=== PATIENT | female | born 1990 | race Caucasian/White ===

== ENCOUNTER → 2017-09-15 | Outpatient (CLI) | payer OTHER ==
[~2017-09-15] MED LIST: CLIN300C2 PO; SPR28 PO
[2017-09-15 13:49] LABS: INR 0.9 (0.9-1.1); PTT PATIENT 26.4 SECONDS (21.0-31.0)
[2017-09-15 14:00] LABS: POTASSIUM 3.5 mmol/L (3.5-5.1)
[2017-09-15 14:20] LABS: BASO % 0.4 %; BASO ABS # 0.03 K/uL (0-0.2); EOS % 0.3 %; EOS ABS # 0.02 K/uL (0-0.5); HEMATOCRIT 42.1 % (37-47); IG# 0.01 K/uL (0.00-0.02); LYMPH ABS # 2.17 K/uL (1.2-3.4); MEAN CELL VOLUME 89.6 fL (80-100); MEAN CORPUSCULAR HEMOGLOBIN 29.8 pg (25-34); MEAN CORPUSCULAR HGB CONC 33.3 g/dl (32-36); MEAN PLATELET VOLUME 9.9 fL (7.4-10.4); MONO % 6.2 %; MONO ABS # 0.43 K/uL (0.11-0.59); NEUT ABS # 4.33 K/uL (1.4-6.5); PLATELET COUNT 347 K/uL (130-400); RED CELL DISTRIBUTION WIDTH CV 13.6 % (11.5-14.5); RED CELL DISTRIBUTION WIDTH SD 45.1 fL (36.4-46.3); WHITE BLOOD COUNT 6.99 K/uL (4.8-10.8)
== END | disposition home or self-care (01) ==
LOC: C.LABBC 11:01
DX: Z01.818 Encounter for other preprocedural examination (principal)

== ENCOUNTER → 2017-10-08 | Day surgery (SDC) | payer OTHER ==
[2017-07-21 07:34] VITALS: BMI 19.0
[2017-09-15 13:33] VITALS: Ht 165.1 cm; Wt 52.3 kg
[~2017-10-08] VITALS: Ht 165.1 cm; Wt 52.3 kg
[~2017-10-08] MED LIST changes: +ACETAMINOPHEN/HYDROCODONE ELIX 15 ML/CUP UDP ONE; +ACETAMINOPHEN/HYDROCODONE ELIX 15 ML/CUP UDP PO PRN; +ATROPINE SULFATE 0.1 MG/ML 5ML SYR IV PRN; +BACITRACIN/POLYMYXIN B OINT 15 GM TUBE EXT ONE; -CLIN300C2 PO; +DEXAMETHASONE SOD INJ 4 MG/ML VIAL IV PRN; +DEXAMETHASONE SOD INJ 4 MG/ML VIAL ONE; +EpHEDrine SULFATE INJ 50 MG/ML AMP IV PRN; +FENTANYL CITRATE INJ 50 MCG/1 ML 2 ML VIAL IV PRN; +FENTANYL CITRATE INJ 50 MCG/1 ML 2 ML VIAL ONE; +KETOROLAC TROMETHAMINE 30 MG/ML VIAL IV. PRN; +LABETALOL HCL IV 5 MG/ML 20ML IV PRN; +LACTATED RINGER'S 1000ML 1,000 ML IV SCH; +LIDOCAINE 2% JELLY 5 ML TUBE EXT ONE; +LIDOCAINE HCL 2% 2 ML VIAL (20MG/ML) ONE; +METOCLOPRAMIDE HCL INJ 5 MG/ML 2 ML VIAL IV PRN; +MIDAZOLAM HCL 1 MG/ML 2ML VIAL ONE; +MoRPHine SULFATE 10 MG/ML CARP/VIAL IV PRN; +ONDANSETRON INJ 2 MG/ML 2 ML VIAL IV PRN; +ONDANSETRON INJ 2 MG/ML 2 ML VIAL ONE; +PHENYLEPHRINE 100MCG/ML 5ML SYR IV PRN; +PROPOFOL IV EMULSION 10 MG/ML 20 ML VIAL IV ONE
--- NOTE | 2017-10-08 11:28 | History and Physical: Surg Cnt ---
History & Physical Date Oct 08, 2017. Chief Complaint RECURRENT ACUTE AND CHRONIC TONSILLITIS History of Present Illness The patient is a 26 year old female with complaints of RECURRENT ACUTE AND CHRONIC TONSILLITIS Past Medical/Surgical History PMH: NONE PSH: S/P ACL REPAIR, S/P HERNIA REPAIR, S/P BLADDER SURGERY, S/P WISDOM TEETH EXTRACTION Additional History Hepatic Disease: No Endocrine Disorder: No Kidney Disease: No Hypertension: No Heart Disease: No Bleeding Tendencies: No Infectious Diseases: No Allergies Coded Allergies: Amoxicillin (Verified Allergy, Unknown, RASH, 10/08/17) Clavulanic Acid (Verified Allergy, Unknown, RASH, 10/08/17) Clindamycin (Verified Allergy, Unknown, RASH, 10/08/17) Home Medications Scheduled Ethinyl Estrad/Norgestimate (Sprintec 28), 1 TAB PO HS Physical Examination Skin: warm/dry, no rash Eyes: normal inspection, EOMI, sclerae normal ENT: + pertinent finding (2-3+ CRYPTIC TONSILS) Head: normocephalic, atraumatic Neck: supple, no adenopathy, trachea midline Respiratory/Chest: lungs clear, normal breath sounds, no respiratory distress Cardiovascular: regular rate, rhythm, no edema, no murmur Neurologic/Psych: no motor/sensory deficits, alert, normal reflexes, oriented x 3 Diagnosis RECURRENT ACUTE AND CHRONIC TONSILLITIS Plan of Treatment TONSILLECTOMY, POSSIBLE ADENOIDECTOMY
--- NOTE | 2017-10-08 12:27 | [facility] Operative Report ---
Operative Report Operative Date Oct 08, 2017. Pre-Operative Diagnosis Recurrent Acute and Chronic Tonsillitis Post-Operative Diagnosis Same Procedure(s) Performed Tonsillectomy Surgeon Dr. King [facility] Consultant Surgeon(s) None Estimated Blood Loss 5ML Findings 2-3+ CRYPTIC TONSILS BILATERALLY Specimens A. Right Tonsil B. Left Tonsil I attest to the content of the Intraoperative Record and any orders documented therein. Any exceptions are noted below.
--- NOTE | 2017-10-08 12:30 | Discharge Instructions ---
Discharge Instructions Date of Service Oct 08, 2017. Admission Reason for Admission: Recurrent Acute Tonsillitis,Hypertrophy Discharge Discharge Diagnosis / Problem: SAME Discharge Goals Goal(s): Therapeutic intervention Activity Recommendations Activity Limitations: as noted below LIGHT ACTIVITY FOR 2 WEEKS . Current Hospital Diet Patient's current hospital diet: Full Liquid Diet Discharge Diet Recommended Diet: Full Liquid Diet Diet Texture: Mechanical Soft (ground) Procedures Procedures Performed: Tonsillectomy Pending Studies Studies pending at discharge: no Medical Emergencies . Who to Call and When: Medical Emergencies: If at any time you feel your situation is an emergency, please call 911 immediately. . Non-Emergent Contact Non-Emergency issues call your: Surgeon . . "Provider Documentation" section prepared by River King. . VTE Core Measure Inpt VTE Proph given/why not?: SCD's
--- NOTE | 2017-10-08 12:59 | OPERATIVE REPORT ---
DATE OF OPERATION: 10/08/2017 PREOPERATIVE DIAGNOSIS: Recurrent acute and chronic tonsillitis. POSTOPERATIVE DIAGNOSIS: Recurrent acute and chronic tonsillitis. PROCEDURE: Tonsillectomy. SURGEON: River King MD ANESTHESIA: General endotracheal. ESTIMATED BLOOD LOSS: 5 mL. FINDINGS: 1. No evidence of adenoid tissue. 2. Normal palate. 3. 2-3+ cryptic endophytic tonsils bilaterally. SPECIMENS: Right and left tonsil sent separately for pathological assessment. COMPLICATIONS: None. INDICATIONS FOR THE PROCEDURE: The patient is a very pleasant 26-year-old female with the above-mentioned history, presents for the above-mentioned procedure on an outpatient elective basis. DESCRIPTION OF PROCEDURE: After an informed consent had been obtained from the patient, the patient was wheeled to the operating room and placed on the operating table in the supine position. Monitors were placed. After induction of general endotracheal anesthesia, the table was turned 90 degrees and the patient's head and neck were gently extended. Antibiotic ointment was applied. The lips and the mouth gag was carefully inserted, opened, and stabilized on a roll of towels. The palate was inspected and found to be normal. A catheter was then inserted into the right nasal cavity and this was used to elevate the soft palate and uvula. Laryngeal mirror was used to inspect the nasopharynx and intraoperative findings were of no evidence of adenoid tissue. An Allis clamp was then used to grasp the right tonsil and the superior pole and Bovie electrocautery was used to remove the tonsil in the capsular plane with care to preserve the underlying mucosa and musculature of the anterior and posterior tonsillar pillars. The left tonsil was removed in similar fashion. Intraoperative findings were 2-3+ cryptic tonsils bilaterally. These were sent separately for permanent pathological assessment. The mouth gag was released for 1 minute. This was reopened and hemostasis was confirmed. An orogastric tube was placed and the stomach was suctioned free of air and stomach contents. 2% lidocaine jelly was placed in the bilateral tonsillar fossae for added anesthetic effect. This marked the end of the case. The patient tolerated the procedure well. There were no apparent complications. The patient was extubated and transferred to recovery room in stable condition. I attest to the content of the Intraoperative Record and any orders documented therein. Any exception s are noted below.
[2017-10-08 13:10] VITALS: TEMP 36.6
--- NOTE | 2017-10-08 13:32 | Anesthesia Progress Nt - [facility] ---
Anesthesia Post Op Note Date & Time Oct 08, 2017 at 13:32 Vital Signs Pain Intensity: 4.0 Vital Signs Past 12 Hours Date Time Temp Pulse Resp B/P (MAP) Pulse Ox O2 Delivery O2 Flow Rate FiO2 10/08/17 13:10 36.6 67 16 132/89 (103) 98 Room Air 10/08/17 13:01 36.9 10/08/17 12:58 86 19 10/08/17 12:58 86 19 99 10/08/17 12:56 130/84 (101) 10/08/17 12:54 Room Air 10/08/17 12:53 88 22 10/08/17 12:53 87 22 100 10/08/17 12:51 126/87 (102) 10/08/17 12:48 87 17 100 10/08/17 12:48 86 17 10/08/17 12:46 132/93 (99) 10/08/17 12:43 98 19 10/08/17 12:43 93 19 100 10/08/17 12:41 131/94 (100) 10/08/17 12:38 96 10/08/17 12:38 96 100 10/08/17 12:37 130/90 (105) 10/08/17 12:33 37.4 93 16 130/90 100 Humidified Oxygen 5 10/08/17 10:16 36.4 76 16 114/78 (90) 100 Room Air Notes Mental Status: alert / awake / arousable, participated in evaluation Pt Amnestic to Procedure: Yes Nausea / Vomiting: adequately controlled Pain: adequately controlled Airway Patency, RR, SpO2: stable & adequate BP & HR: stable & adequate Hydration State: stable & adequate Anesthetic Complications: no major complications apparent
[2017-10-08 13:37] VITALS: BP 133/90; PULSE 63; O2SAT 100
== END | disposition home or self-care (01) ==
LOC: X.SURG 09:58
DX: J03.90 Acute tonsillitis, unspecified (principal); J35.01 Chronic tonsillitis

== ENCOUNTER → 2017-12-20 | Outpatient (CLI) | payer OTHER ==
[~2017-12-20] MED LIST changes: -ACETAMINOPHEN/HYDROCODONE ELIX 15 ML/CUP UDP ONE; -ACETAMINOPHEN/HYDROCODONE ELIX 15 ML/CUP UDP PO PRN; -ATROPINE SULFATE 0.1 MG/ML 5ML SYR IV PRN; -BACITRACIN/POLYMYXIN B OINT 15 GM TUBE EXT ONE; -DEXAMETHASONE SOD INJ 4 MG/ML VIAL IV PRN; -DEXAMETHASONE SOD INJ 4 MG/ML VIAL ONE; -EpHEDrine SULFATE INJ 50 MG/ML AMP IV PRN; -FENTANYL CITRATE INJ 50 MCG/1 ML 2 ML VIAL IV PRN; -FENTANYL CITRATE INJ 50 MCG/1 ML 2 ML VIAL ONE; -KETOROLAC TROMETHAMINE 30 MG/ML VIAL IV. PRN; -LABETALOL HCL IV 5 MG/ML 20ML IV PRN; -LACTATED RINGER'S 1000ML 1,000 ML IV SCH; -LIDOCAINE 2% JELLY 5 ML TUBE EXT ONE; -LIDOCAINE HCL 2% 2 ML VIAL (20MG/ML) ONE; -METOCLOPRAMIDE HCL INJ 5 MG/ML 2 ML VIAL IV PRN; -MIDAZOLAM HCL 1 MG/ML 2ML VIAL ONE; -MoRPHine SULFATE 10 MG/ML CARP/VIAL IV PRN; -ONDANSETRON INJ 2 MG/ML 2 ML VIAL IV PRN; -ONDANSETRON INJ 2 MG/ML 2 ML VIAL ONE; -PHENYLEPHRINE 100MCG/ML 5ML SYR IV PRN; -PROPOFOL IV EMULSION 10 MG/ML 20 ML VIAL IV ONE
== END | disposition home or self-care (01) ==
LOC: C.LAB1850 11:26
PROVIDERS: ATTEND Internal Medicine Pulmonary Disease
DX: J35.1 Hypertrophy of tonsils (principal); L30.9 Dermatitis, unspecified; T88.7XXA Unspecified adverse effect of drug or medicament, initial encounter; X58.XXXA Exposure to other specified factors, initial encounter